=== PATIENT | male | born 1975 | race Caucasian/White ===

== ENCOUNTER 2020-10-20 17:36 | Emergency (ER) | payer OTHER ==
[~2020-10-20] VITALS: Ht 182.9 cm; Wt 89.9 kg
--- NOTE | 2020-10-20 18:00 | PHYS DOC ---
Past History Past Medical History: Diabetes, Migraines General Adult EDM: Chief Complaint: HEADACHE HPI: HPI: Patient is a 44 year old male who presents with above hx and complaints of headache. Review of Systems: Review of Systems: Constitutional: Denies fever or chills Eyes: Denies change in visual acuity HENT: Denies nasal congestion or sore throat Respiratory: Denies cough or shortness of breath Cardiovascular: Denies chest pain or edema GI: Denies abdominal pain, nausea, vomiting, bloody stools or diarrhea : Denies dysuria Musculoskeletal: Denies back pain or joint pain Integument: Denies rash Neurologic: Denies headache, focal weakness or sensory changes Endocrine: Denies polyuria or polydipsia Lymphatic: Denies swollen glands Psychiatric: Denies depression or anxiety Physical Exam: PE: Constitutional: Well developed, well nourished, no acute distress, non-toxic appearance. [] HENT: Normocephalic, atraumatic, bilateral external ears normal, oropharynx moist, no oral exudates, nose normal. [] Eyes: PERRLA, EOMI, conjunctiva normal, no discharge. [] Neck: Normal range of motion, no tenderness, supple, no stridor. [] Cardiovascular:Heart rate regular rhythm, no murmur [] Lungs & Thorax: Bilateral breath sounds clear to auscultation [] Abdomen: Bowel sounds normal, soft, no tenderness, no masses, no pulsatile masses. [] Skin: Warm, dry, no erythema, no rash. [] Back: No tenderness, no CVA tenderness. [] Extremities: No tenderness, no cyanosis, no clubbing, ROM intact, no edema. [] Neurologic: Alert and oriented X 3, normal motor function, normal sensory function, no focal deficits noted. [] Psychologic: Affect normal, judgement normal, mood normal. [] EKG: EKG: [] Radiology/Procedures: Radiology/Procedures: [[address] [address] IMAGING REPORT Signed PATIENT: AARON BARNEY ACCOUNT: [id number] : 1975 LOCATION: ER AGE: 44 SEX: M EXAM STATUS: REG ER ORD. PHYSICIAN: ALANNA MORAN MD REASON: headache - x 2 days, ref. from Dr. Gastelum office PROCEDURE: CT HEAD WO CONTRAST Exam: CT head INDICATION: Headache TECHNIQUE: Sequential axial images through the head were obtained without the administration of IV contrast. Exposure: One or more of the following in the visualized dose reduction techniques were utilized for this examination: 1. Automated exposure control 2. Adjustment of the MA and/or KV according to patient size 3. Use of iterative of reconstructive technique Comparisons: None FINDINGS: No focal parenchymal lesion or hemorrhage is identified. There is no midline shift or sulcal effacement. No acute vascular territory infarction is identified. Curtis-white distinction is preserved. The ventricular system is within normal limits without compression hydrocephalus. The basal cisterns are well maintained. The visualized portions of the paranasal sinuses and mastoid air cells are well-pneumatized. No acute fractures. IMPRESSION: No acute intracranial abnormality. Electronically signed by: Caleb Cervantes MD (10/20/2020 7:09 PM) [facility] DICTATED AND SIGNED BY: CALEB CERVANTES MD DATE: 10/20/201905 CC: ALANNA MORAN MD; CRHIS ALEXANDRE ~MTH0 0 ][place] [address] Heart Score: Risk Factors: Risk Factors: DM, Current or recent (<one month) smoker, HTN, HLP, family history of CAD, obesity. Risk Scores: Score 0 - 3: 2.5% MACE over next 6 weeks - Discharge Home Score 4 - 6: 20.3% MACE over next 6 weeks - Admit for Clinical Observation Score 7 - 10: 72.7% MACE over next 6 weeks - Early Invasive Strategies Course & Med Decision Making: Course & Med Decision Making Pertinent Labs and Imaging studies reviewed. (See chart for details) [] Dragon Disclaimer: Dragon Disclaimer: This electronic medical record was generated, in whole or in part, using a voice recognition dictation system. Departure Departure: Referrals: CHRIS ALEXANDRE (PCP) ALANNA MORAN MD Oct 20, 2020 18:00
[2020-10-20] MEDS ORDERED: MORPHINE SULFATE 10 MG/ML SYRINGE. SQ ONE ×2 (18:15→20:30)
[2020-10-20] MEDS ORDERED: ONDANSETRON ODT 4 MG TAB.RAPDIS PO ONE (18:15)
[2020-10-20 18:45] LABS: BASO # 0.1 x10^3/uL (0.0-0.2); BASO % 2 % (0-3); EOS # 0.2 x10^3/uL (0.0-0.7); EOS % 3 % (0-3); HEMATOCRIT 42.8 % (39.0-53.0); HEMOGLOBIN 14.5 g/dL (13.0-17.5); LYMPH # 2.2 x10^3/uL (1.0-4.8); LYMPH % 37 % (24-48); MEAN CORPUSCULAR HEMOGLOBIN 28 pg (25-35); MEAN CORPUSCULAR HGB CONC 34 g/dL (31-37); MEAN CORPUSCULAR VOLUME 82 fL (79-100); MONO # 0.7 x10^3/uL (0.0-1.1); MONO % 11 % (0-9); NEUT # 2.8 x10^3uL (1.8-7.7); NEUT % 47 % (31-73); PLATELET COUNT 249 x10^3/uL (140-400); WHITE BLOOD COUNT 5.9 x10^3/uL (4.0-11.0)
[2020-10-20 18:49] LABS: CALCIUM 8.5 mg/dL (8.5-10.1); CREATININE 1.2 mg/dL (0.7-1.3); GFR 66.1; POTASSIUM 4.3 mmol/L (3.5-5.1)
[2020-10-20 18:55] LABS: C REACTIVE PROTEIN 11.1 mg/L (0-3.3); MAGNESIUM 2.2 mg/dL (1.8-2.4)
--- NOTE | 2020-10-20 19:11 | RAD ---
Exam: CT head INDICATION: Headache TECHNIQUE: Sequential axial images through the head were obtained without the administration of IV co ntrast. Exposure: One or more of the following in the visualized dose reduction techniques were utilized for this examination: 1. Automated exposure control 2. Adjustment of the MA and/or KV according to patient size 3. Use of iterative of reconstructive technique Comparisons: None FINDINGS: No focal parenchymal lesion or hemorrhage is identified. There is no midline shift or sulcal effaceme nt. No acute vascular territory infarction is identified. Curtis-white distinction is preserved. The ventricular system is within normal limits without compression hydrocephalus. The basal cisterns are well maintained. The visualized portions of the paranasal sinuses and mastoid air cells are well-pneumatized. No acute fractures. IMPRESSION: No acute intracranial abnormality. Electronically signed by: Caleb Hernandez MD (10/20/2020 7:09 PM) [facility]
[2020-10-20] MEDS ORDERED: DEXAMETHASONE SOD PHOS 10 MG/ML VIAL. IV ONE (20:30)
[2020-10-20 20:37] LABS: INFLUENZA A PATIENT NEGATIVE (NEGATIVE); INFLUENZA B PATIENT NEGATIVE (NEGATIVE)
[2020-10-20] MEDS ORDERED: KETOROLAC 30 MG/ML VIAL. ONE (20:47)
[2020-10-20 21:30] LABS: % LYMPHS 48 % (24-48); % MONOS 9 % (0-10); % SEGS 43 % (35-66); PLT ESTIMATE ADEQUATE (ADEQUATE)
[2020-10-20] MEDS ORDERED: KETOROLAC 30 MG/ML VIAL. IVP ONE (21:30)
[2020-10-20 23:31] LABS: BARBITURATES NEG (NEG); BENZODIAZEPINES NEG (NEG); CANNABINOIDS NEG (NEG); COCAINE NEG (NEG); METHADONE NEG (NEG); OPIATES POS (NEG); PHENCYCLIDINE NEG (NEG)
[2020-10-20 23:35] LABS: AMPHETAMINE/METHAMPHETAMINE NEG (NEG)
[2020-10-20 23:39] LABS: CLARITY,URINE CLEAR; COLOR,URINE YELLOW
[2020-10-20 23:40] LABS: BACTERIA,URINE 0 /HPF (0-FEW); BILIRUBIN,URINE NEG (NEG); GLUCOSE,URINE NEG (NEG); NITRITE,URINE NEG (NEG); RBC,URINE 0 /HPF (0-2); SQUAMOUS EPITHELIAL CELL,UR OCC /LPF; WBC,URINE RARE /HPF (0-4)
[2020-10-21] MEDS ORDERED: LIDOCAINE 1%/EPI 1:100,000 20 ML VIAL. ONE (00:21)
[2020-10-21] MEDS ORDERED: [UNRECOGNIZED DRUG - OTHER] ONE (00:22)
[2020-10-21] MEDS ORDERED: IV RINGERS SOLUTION,LACTATED 1,000 ML IV ONE (01:30)
[2020-10-21 03:20] VITALS: BP 110/62
[2020-10-21 08:11] LABS: CSF PROTEIN 38.7 mg/dL (15.0-45.0)
[2020-10-21 08:14] LABS: CSF CLARITY CLEAR; CSF COLOR COLORLESS
[2020-10-21 08:15] LABS: CSF RBC COUNT 0; CSF WBC COUNT 0
== END 2020-10-21 03:30 | disposition home or self-care (01) ==
LOC: ER 17:36
DX: G43.909 Migraine, unspecified, not intractable, without status migrainosus (principal); E11.9 Type 2 diabetes mellitus without complications
CPT/HCPCS: 36415; 70450; 80048; 80307; 81001; 82550; 82945; 83735; 84157; 85007; 85025; 86140; 87040; 87070; 87102; 87804; 87880; 87899; 89051; 96361; 96372; 96374; 96375; 99284; J1100; J1885; J2270; J7120; Q0162